=== PATIENT | female | born 1960 | race Caucasian/White ===

== ENCOUNTER 2021-06-16 08:14 | Emergency (ER) | payer SELFPAY ==
[2021-06-16] MEDS ORDERED: BACTROBAN NASAL1 GM (09:17)
[2021-06-16] MEDS ORDERED: AUGMENTIN 875-1 EACH PO (09:17)
== END 2021-06-16 09:30 | disposition home or self-care (01) ==
LOC: FER 08:14
DX: S41.112A Laceration without foreign body of left upper arm, initial encounter (principal); S51.812A Laceration without foreign body of left forearm, initial encounter; S61.012A Laceration without foreign body of left thumb without damage to nail, initial encounter; I10 Essential (primary) hypertension; W55.01XA Bitten by cat, initial encounter; Y92.009 Unspecified place in unspecified non-institutional (private) residence as the place of occurrence of the external cause
CPT/HCPCS: 99283

== ENCOUNTER 2022-01-07 19:12 | Emergency (ER) | payer OTHER ==
[~2022-01-07 19:12] MED LIST: AUGMENTIN 875-1 EACH PO; BACTROBAN NASAL1 GM
[2022-01-07 21:02] LABS: EOSINOPHIL 1.2 % (0-5); HCT 47.2 % (37.0-47.0); HGB 15.1 g/dl (12.5-16.0); LYMPHOCYTE 35.6 % (15-48); MCH 28.8 pg (25.0-31.0); MCV 90.1 fL (78.0-100.0); MPV 11.6 fL (6.0-9.5); NEUTROPHIL 50.9 % (41-80); NRBC 0; PLT 334 K/uL (150-400); RBC 5.24 M/uL (4.20-5.40); RDW 14.4 % (11.5-14.0); WBC 6.7 K/uL (4.0-10.5)
[2022-01-07 21:19] LABS: ALBUMIN 3.4 g/dL (3.4-5.0); BILIRUBIN - TOTAL 0.2 mg/dL (0.2-1.0); BUN/CREAT RATIO (CALC) 17.3 RATIO; CREATININE 0.75 mg/dL (0.51-0.95); GLOBULIN (CALCULATION) 4.4 g/dL; POTASSIUM 3.8 mmol/L (3.5-5.1); TOTAL PROTEIN 7.8 g/dL (6.4-8.2)
== END 2022-01-07 22:43 | disposition home or self-care (01) ==
LOC: FER 19:12
PROVIDERS: Physician Assistant
DX: R00.1 Bradycardia, unspecified (principal); I10 Essential (primary) hypertension; E66.9 Obesity, unspecified
CPT/HCPCS: 36415; 71046; 80053; 84484; 85025; 93005